=== PATIENT | female | born 1995 | race Hispanic/Latino ===

== ENCOUNTER 2024-04-20 17:08 | Emergency (ER) | payer SELFPAY | END 2024-04-20 20:25 | disposition home or self-care (01) | LOC: CSHERS 17:08 | DX: M79.605 Pain in left leg (principal) | CPT/HCPCS: 99283 ==

== ENCOUNTER 2024-05-01 19:14 | Emergency (ER) | payer SELFPAY ==
[2024-05-01] MEDS ORDERED: Acetaminophen 500 MG TAB ONE (20:44)
[2024-05-01] MEDS ORDERED: predniSONE 20 MG TAB ONE (20:44)
[2024-05-01] MEDS ORDERED: Methocarbamol 500 MG TAB ONE (20:45)
[2024-05-01] MEDS ORDERED: Lidocaine 4% Patch ONE (20:45)
[2024-05-01 21:42] LABS: #Basophils 0.07 10x3/uL (0.0-0.2); #Eosinphils 0.24 10x3/uL (0.0-0.5); #Monocytes 0.43 10x3/uL (0.0-1.1); #Neutrophils 8.32 10x3/uL (1.5-8.4); %Basophils 0.6 % (0.0-2.0); %Eosinophils 2.1 % (0.0-6.0); %Lymphocytes 18.6 % (18.0-47.0); %Monocytes 3.8 % (0.0-10.0); %Neutrophils 74.5 % (40.0-75.0); Hematocrit 39.4 % (34.9-44.5); Hemoglobin 13.2 g/dL (12.0-15.5); Mean Corpuscular HGB CONC 33.5 g/dL (32.0-36.0); Mean Corpuscular Hemoglobin 29.7 pg (27.0-33.0); Mean Corpuscular Volume 88.5 fL (81.6-98.3); Mean Platelet Volume 8.8 fL (7.4-10.4); Platelet Count 345 10x3/uL (150-450); RBC Distribution Width 12.6 % (11.5-14.5); Red Blood Cell (RBC) Count 4.45 10x6/uL (3.90-5.03); White Blood Cell (WBC) Count 11.2 10x3/uL (3.5-10.5)
[2024-05-01 21:52] LABS: Anion Gap 13 mmol/L (10-20); BUN (Urea Nitrogen) 13 mg/dL (7.0-18.7); CK (CPK) 620 U/L (29-168); Calc. Creatinine Clearance 0 mL/min (70-130); Calcium 9.4 mg/dL (7.8-10.44); Carbon Dioxide 25 mmol/L (22-29); Chloride 104 mmol/L (98-107); Estimated GFR 85; Glucose 94 mg/dL (70-105); Potassium 3.7 mmol/L (3.5-5.1); Sodium 138 mmol/L (136-145)
[2024-05-01] MEDS ORDERED: Ketorolac Tromethamine 30 MG (1 mL) VIAL ONE (23:20)
== END 2024-05-02 02:17 | disposition home or self-care (01) ==
LOC: CSHERS 19:14
DX: M54.17 Radiculopathy, lumbosacral region (principal)
CPT/HCPCS: 80048; 82550; 85025; 85379; 96374; J1885; J7512

== ENCOUNTER 2024-07-07 21:29 | Emergency (ER) | payer OTHER, SELFPAY ==
[2024-07-08] MEDS ORDERED: Dexamethasone 10 MG/ML VIAL ONE (01:25)
[2024-07-08] MEDS ORDERED: Ketorolac Tromethamine 30 MG (1 mL) VIAL ONE (01:25)
== END 2024-07-08 01:40 | disposition home or self-care (01) ==
LOC: CSHERS 21:29
DX: M54.16 Radiculopathy, lumbar region (principal)
CPT/HCPCS: 96372; 99283; J1100; J1885